=== PATIENT | male | born 1965 | race Caucasian/White ===

== ENCOUNTER 2021-10-04 12:37 | Emergency (ER) | payer BC, MEDICARE, SELFPAY ==
[2021-10-04] VITALS (10 sets, daily range): BP systolic 130–154; BP diastolic 69–90; PULSE 78–91; RESP 17–18; TEMP 36.8; O2SAT 96–100; BMI 26.8
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
--- NOTE | 2021-10-04 13:10 | PC.NURSE ---
pt going to CT via stretcher pain meds given prior to CT
[2021-10-04 13:31] LABS: Alanine Aminotransferase 38 U/L (12-78); Albumin Level 4.2 g/dl (3.5-5.0); Albumin/Globulin Ratio 1.6 (1.1-1.8); Alkaline Phosphatase 111 U/L (38-126); Anion Gap 10.9 mEq/L (5-15); Aspartate Amino Transferase 49 U/L (17-59); Bilirubin,Total 0.6 mg/dl (0.2-1.3); Blood Urea Nitrogen 14 mg/dl (9-20); Calcium 9.3 mg/dl (8.4-10.2); Carbon Dioxide 28 mmol/L (22.0-30.0); Chloride 105 mmol/L (98-107); Creatinine Clearance Estimated 106 mL/min (50-200); Estimated Glomerular Filt Rate 78 ml/min (>60); GFR (African American) 94 ML/MIN (>60); Globulin 2.7 g/dL (1.3-3.2); Glucose 198 mg/dl (74-100); Potassium 3.9 mmoL/L (3.5-5.1); Sodium 140 mmol/L (136-145); Total Protein,Serum 6.9 g/dl (6.3-8.2)
[2021-10-04 13:37] LABS: Basophils % 0.4 % (0.1-2.0); Eosinophils # 0.1 K/mm3 (0.0-0.4); Hematocrit 46.2 % (42.0-52.0); Hemoglobin 14.4 g/dL (14.1-18.0); Lymphocytes # 0.6 K/mm3 (0.7-4.5); Lymphocytes % 4.8 % (10-50); Mean Corpuscular HGB Conc 31.2 g/dL (31.8-35.4); Mean Corpuscular Hemoglobin 30.1 pg (27.0-31.2); Mean Corpuscular Volume 96.4 fl (80-94); Mean Platelet Volume 9.1 fl (7.4-10.4); Monocytes # 0.7 K/mm3 (0.1-1.0); Monocytes % 5.8 % (1.7-9.3); Neutrophils # 10.4 K/mm3 (1.8-7.8); Neutrophils % 87.9 % (37.0-80.0); Platelet Count 268 K/mm3 (142-424); Red Blood Count 4.79 M/mm3 (4.60-6.20); Red Cell Distribution Width 12.9 % (11.5-17.5); White Blood Count 11.8 K/mm3 (4.8-10.8)
[2021-10-04 13:40] LABS: MANUAL DIFFERENTIAL MANUAL DIFFERENTIAL (MANUAL DIFF)
[2021-10-04 13:55] LABS: Lymphocytes % 9 % (10-50); Monocytes % 5 % (2-9); Neutrophils % 85 % (42-76); RBC Morphology Normal; Total Cells Counted 100
[2021-10-04 13:56] LABS: Platelet Estimate Normal
--- NOTE | 2021-10-04 14:18 | PC.NURSE ---
pt remains in CT. rounded on waiting in the room. no needs at this time
--- NOTE | 2021-10-04 14:28 | PC.NURSE ---
pt back from CT. blanket provided to pt.
--- NOTE | 2021-10-04 17:00 | PC.NURSE ---
TULIO NÚÑEZ at for patient procedure.
--- NOTE | 2021-10-04 18:39 | PC.NURSE ---
PT UP AND HAS AMBULATED AROUND ROOM WITH AND STAFF
== END 2021-10-04 19:54 | disposition home or self-care (01) ==
PROVIDERS: Emergency Provider Emergency Medicine; PCP Internal Medicine
DX: S22.069A Unspecified fracture of T7-T8 vertebra, initial encounter for closed fracture (principal); S01.01XA Laceration without foreign body of scalp, initial encounter; W31.89XA Contact with other specified machinery, initial encounter
CPT/HCPCS: 12001; 70450; 70496; 70498; 71045; 71275; 72125; 72128; 72131; 72170; 73030; 73080; 73090; 73110; 73130; 73590; 74174; 80053; 85007; 85025; 86850; 96374; 96375; 99285; J2405; Q9967

== ENCOUNTER 2021-12-19 07:00 | Outpatient (RCR) | payer BC, MEDICARE, SELFPAY | END 2022-01-21 09:36 | disposition home or self-care (01) | LOC: PT.CARL 07:00 | PROVIDERS: PCP Internal Medicine; Visit Provider Neurological Surgery | DX: M54.2 Cervicalgia (principal) | CPT/HCPCS: 97012; 97110; 97140; 97163; 97164 ==

== ENCOUNTER 2024-07-03 23:53 | Emergency (ER) | payer MEDICARE, SELFPAY ==
[2024-07-04 00:02] VITALS: BP 172/81; PULSE 107; RESP 18; TEMP 39.2; O2SAT 96; BMI 27.9
--- NOTE | 2024-07-04 00:08 | HMH.EDGENADL ---
Discharge Plan Disposition Chief Complaint: Upper Respiratory Infection Prescriptions Prescriptions: No Action naproxen 500 mg tablet 500 mg PO Q12H PRN (Reason: pain) Qty: 20 0RF oxycodone 5 mg tablet 5 mg PO Q6H PRN (Reason: severe pain (scale score 7-10)) Qty: 12 0RF methocarbamol 500 mg tablet 500 mg PO Q8H PRN (Reason: pain) Qty: 20 0RF Referrals Follow up/Referrals: Andreas Parry [Primary Care Provider] - See instructions Activity Restrictions/Add. Instructions Additional Instructions/Restrictions: Please follow-up with your primary care provider. Please return to the emergency department if you develop any new or worsening symptoms or become concerned for your health. Clinical Impressions Clinical Impression: Fever, Rhinovirus Print Language Print Language: Fijian Discharge ED Provider: Rob Benson General Adult HPI General Chief complaint: Upper Respiratory Infection Stated complaint: shaking fever chills congestion Time Seen by Provider: 07/03/24 23:58 Mode of Arrival: Ambulatory Source of Information: Patient and Relative Description of Symptoms (Recalled from ER Triage Doc. by RN): pt presents with c/o fever, shakes, and body aches that began approx 1 week ago. Pt reports last dose of tylenol or mortin was ths AM. Pt reports HX of diabetes with dexcom in placed last BG check reading 156 approx 30 mins ago. History of Present Illness HPI narrative: 59-year-old male with history of insulin-dependent diabetes presents for fever chills. He had an episode of chills so bad tonight that he was having trouble walking. Denies any seizure-like activity. He reports that he has been having nasal congestion and bodyaches over the last several days. Others in his family are similarly ill. He was worried that his blood sugar was low but when he checked it it was 90 at home. His blood sugar normally runs between 100 and 200. Denies any chest pain or shortness of breath. Reports intermittent productive cough. No history of lung disease. Patient denies any urinary symptoms. Primary complaint is his upper respiratory symptoms. They also report that he had a couple of tick bites recently but they were not on very long, were not engorged and he did not develop a rash around them. Related Data Previous Rx's ?Medication ?Instructions ?Recorded methocarbamol 500 mg tablet 500 mg PO Q8H PRN pain #20 tabs 10/04/21 naproxen 500 mg tablet 500 mg PO Q12H PRN pain #20 tabs 10/04/21 oxycodone 5 mg tablet 5 mg PO Q6H PRN severe pain (scale 10/04/21 score 7-10) #12 tabs Allergies Allergy/AdvReac Type Severity Reaction Status Date / Time No Known Drug Allergies (NO Allergy Unknown Verified 10/04/21 17:35 KNOWN DRUG ALLERGIES) [facility] Disclaimer: The information contained in this section may have been updated after the patient was seen, as this information can be updated by other users. Social History (Updated 10/04/21 @ 21:00 by Aditi Gaytan DO) Smoking Status: Never smoker alcohol intake: never current occupational status: employed Travel in the last 8 weeks?: None Have you lived/traveled outside [place] in past 30 days?: No Contact w/someone who lives/traveled outside [place] past 30 days?: No Exposure to someone with infectious disease in past 14 days?: No Do you have a fever (greater than 100.4 F or 38 C)?: Yes Have you tested positive for COVID-19?: No Exposed to someone with COVID-19 in past 14 days?: No Do you have a sore throat?: No Do you have a cough?: No Do you have any weakness?: Yes Do you have any diarrhea?: No Are you experiencing any unusual bleeding?: No Do you have any muscle aches/pain?: No Do you have any abdominal pain?: No Are you experiencing loss of taste or smell?: No ROS Obtained: Yes All systems reviewed & no additional complaints except as documented Physical Exam General General appearance: alert and in no apparent distress Head Head exam: atraumatic and normocephalic Eye Eye exam: Present normal appearance, PERRL and EOMI ENT ENT exam: Present normal oropharynx and normal external ear exam Neck Neck exam: Present normal inspection and full ROM Chest Chest inspection: Present normal inspection and symmetric chest wall rise; Absent tenderness Respiratory Respiratory exam: Present normal lung sounds bilaterally; Absent respiratory distress Cardiovascular Cardiovascular exam: Present regular rate and normal rhythm Abdominal Exam Abdominal exam: Present soft; Absent distention, tenderness or guarding Extremities Exam Extremities exam: Present normal inspection; Absent edema or joint swelling Back Exam Back exam: Present normal inspection; Absent tenderness Neurological Exam Neurological exam: Present alert and oriented X3; Absent motor sensory deficit Psychiatric Psychiatric exam: Present normal affect and normal mood Skin Skin exam: Present warm, dry and normal color Lymphatic Lymphatic Findings: no adenopathy Medical Decision Making Medical Records Medical records reviewed: Yes I reviewed the patient's medical records. Screening: Per USPSTF and CDC recommendations, given the prevalence of disease in our region, it is our hospital?s policy to screen for HIV and viral Hepatitis for all patients aged 18 and over and those with ongoing risk factors. Saravanan Inquiry Pt receiving controlled substance: No Saravanan was queried for this patient: No Vital Signs: 07/04/24 00:02 07/04/24 01:00 07/04/24 01:31 Temperature 102.6 F H Temperature Source Oral Pulse Rate 103 H 102 H Pulse Rate [Radial] 107 H Respiratory Rate 18 Blood Pressure 158/84 H 129/68 Blood Pressure [Right Arm] 172/81 H Blood Pressure Mean [Right Arm] 111 Blood Pressure Position [Right Arm] Sitting 02 Sat by Pulse Oximetry 96 94 L 95 Oxygen Delivery Method Room Air 07/04/24 02:00 Temperature Temperature Source Pulse Rate 99 H Pulse Rate [Radial] Respiratory Rate Blood Pressure 123/69 Blood Pressure [Right Arm] Blood Pressure Mean [Right Arm] Blood Pressure Position [Right Arm] 02 Sat by Pulse Oximetry 96 Oxygen Delivery Method Lab Data Lab results reviewed: Yes I reviewed the patient's lab results. Lab Results 07/04/24 00:18: WBC 9.5, RBC 4.73, Hgb 14.2, Hct 41.9 L, MCV 88.6, MCH 30.0, MCHC 33.9, RDW 12.1, Plt Count 248, MPV 10.4, Neut % (Auto) 92.3 H, Lymph % (Auto) 3.8 L, [place] % (Auto) 2.2, Eos % (Auto) 1.3, Baso % (Auto) 0.2, Neut # (Auto) 8.8 H, Lymph # (Auto) 0.4 L, [place] # (Auto) 0.2, Eos # (Auto) 0.1, Baso # (Auto) 0.0, Sodium 136, Potassium 3.9, Chloride 106, Carbon Dioxide 25, Anion Gap 8.9, BUN 17, Creatinine 0.90, Estimated Creat Clear 118, Estimated GFR 87, Est GFR ( Amer) 105, Glucose 158 H, Lactate 1.0, Calcium 9.0, Magnesium 1.7, Total Bilirubin 0.6, AST 27, ALT 16, Alkaline Phosphatase 83, Total Protein 6.8, Albumin 4.2, Globulin 2.6, Albumin/Globulin Ratio 1.6, Chlamy pneumoniae PCR Not detected, Adenovirus (PCR) Not detected, B. pertussis DNA (PCR) Not detected, Coronavirus OC43 (PCR) Not detected, Coronavirus HKU1 (PCR) Not detected, Coronavirus 229E (PCR) Not detected, SARS-CoV-2 (PCR) Not detected, Coronavirus NL63 (PCR) Not detected, Human Metapneumovir PCR Not detected, Influenza A (H1) PCR Not detected, Influ A (H1N1/09) PCR Not detected, Influenza A (H3) PCR Not detected, Influenza Type A (PCR) Not detected, Influenza Type B (PCR) Not detected, M. pneumoniae (PCR) Not detected, Parainfluenza 1 (PCR) Not detected, Parainfluenza 2 (PCR) Not detected, Parainfluenza 3 (PCR) Not detected, Parainfluenza 4 (PCR) Not detected, RSV (PCR) Not detected, Entero/Rhino (PCR) Detected A 07/04/24 00:18 07/04/24 00:18 Orders (Tests/Meds): ED MEDICATIONS Discontinued Medications Generic Name Dose Route Start Last Admin Trade Name Freq PRN Reason Stop Dose Admin Acetaminophen 1,000 mg 07/04/24 00:56 07/04/24 00:59 Acetaminophen 500mg Tab PO 07/04/24 00:57 1,000 mg ONCE ONE Administration Ketorolac Tromethamine 15 mg 07/04/24 00:56 07/04/24 00:59 Ketorolac 30mg/Ml Vial IV 07/04/24 00:57 15 mg ONCE ONE Administration ORDERS Category Date Time Status CXR 2 view (NOT portable) [XR chest 2V] Stat Exams 07/04/24 00:18 Completed CBC w/Auto Diff [Complete Blood Count Auto Diff] Stat Lab 07/04/24 00:18 Results CMP [Comprehensive Metabolic Panel] Stat Lab 07/04/24 00:18 Completed Full Resp Panel w/COVID ([facility]) Routine Lab 07/04/24 00:18 Completed Lactic Acid Stat Lab 07/04/24 00:18 Completed Magnesium Stat Lab 07/04/24 00:18 Completed Blood Culture Stat Micro 07/04/24 00:48 Received Medical Decision Narrative: 59-year-old male with history of insulin-dependent diabetes presents for several days of upper respiratory symptoms, 1 day of severe chills and fever. History was obtained via interactive discussion with patient, family, chart. On arrival, patient is febrile to 102.6, mildly hypertensive, mildly tachycardic with heart rate of 107., moving all extremities spontaneously. Full physical exam performed and significant for clear lungs bilaterally, nasal congestion/rhinorrhea noted. Differential includes but is not limited to URI, pneumonia, UTI, bacteremia, there is also some concern for tickborne illness given he has had some ticks on him recently, but they were not on for very long nor engorged and so concern for tickborne illness is very low. I considered administering IV antibiotics and fluids for possible sepsis, but given patient's presentation is most consistent with upper respiratory illness I do not think that this is indicated at this time. Patient was given Tylenol and Toradol for symptomatic management and correction of underlying abnormalities. Workup initiated including CBC CMP full viral respiratory panel blood cultures lactate chest x-ray. On re-evaluation, patient remains hemodynamically stable. Laboratory workup independently interpreted by me and significant for no significant leukocytosis, normal renal function, normal lactate. Viral panel returns with rhinovirus. Imaging independently interpreted by me and significant for clear lungs bilaterally without focal opacity.. See radiology read for full review of final results. Given patient history, exam and workup, patient's presentation most likely represents viral upper respiratory infection with rhinovirus resulting in fever and chills. Interactive discussion was had with patient regarding presentation, workup, return precautions etc. Procedures Risk/Benefits of Procedure(s) Were Explained: Yes Critical Care Critical Care Time Critical Care Time: No
--- OUTSIDE RECORDS SUMMARY | 2024-07-04 00:12 | XMS_ITS | Data Portability ---
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 Refill sent to [facility] pharmacy. [email or web address] Not available 2018 21:22:36 04/08/2019 04/08/2019 He is comfortabl e with injections. Medication is working well. Annual follow-up. [email or web address] Not available 04/08/2019 13:03:03 04/13/2020 04/13/2020 PSA normal. Continue prostate cancer screening with annual ALLIE and PSA. Medication refill as requested. [email or web address] Not available 04/16/2020 15:58:13 06/13/2022 06/13/2022 Trimix refilled. Continue Trimix for medical management of erectile dysfunction. [email or web address] Not available 06/13/2022 19:06:18 07/24/2023 07/24/2023 Medical manageme nt of erectile dysfunction with intracavernosal injections. Monitor lower urinary symptoms. [email or web address] Not available 07/25/2023 07:55:11 Plan of Treatment Reminders Order Date Submit Date Provider Last Modified By Organization Details Last Modified Time Details Appointments RECHECK 2024 01:00P M OANH QUIROZ MD Not available Not available Not available Lab urinalysi s panel, auto 2023 024 [email or web address] 4 [facility] Extended Services With [facility], [address] [place] [address] Dr Araya, [place], [address], 07/25/2023 07:55:14 urinalysi s panel, auto 2020 021 [email or web address] 4 [facility] Extended Services With [facility], [address] [place] [address] Dr Araya, [place], [address], 04/16/2020 15:57:50 urinalysi s, dipstick, auto [address] [place] [address] Extended Services With [facility], [address] [place] [address] Dr Araya, [place], [address], 04/08/2019 13:02:48 urinalysi s, dipstick, auto 2018 [email or web address] [place] [address] Extended Services With [facility], [address] [place] [address] Dr Araya, [place], [address], 2018 21:21:23 Referral None recorded. Procedures None recorded. Surgeries None recorded. Imaging None recorded. Medication Orders Compound Tri-Mix SJM papaverin e-phental om-alpros t 30mg-1mg- 20mcg/ml intracave rnosal solution 2023 024 [facility], [address], [place], [place], [id number], 07/25/2023 09:11:57 Compound Tri-Mix SJM papaverin e-phental om-alpros t 30mg-1mg- 20mcg/ml intracave rnosal solution 2022 023 [facility], [address], [place], [id number], 06/13/2022 19:09:13 Compound Tri-Mix SJM papaverin e-phental om-alpros t 30mg-1mg- 20mcg/ml intracave rnosal solution 2020 021 INTERFACE [facility]ly [facility], [address], [place], [place], [id number], 04/16/2020 16:00:39 papaverin e-phentol am-alpros t 30 mg-1 mg-20 mcg/mL intracave rnosal soln 2019 020 INTERFACE [facility], [address], [place], [place], [id number], 04/08/2019 13:06:47 papaverin e-phentol am-alpros t 30 mg-1 mg-20 mcg/mL intracave rnosal soln 2018 019 INTERFACE [facility], [address], [place], [place], [id number], 2018 21:23:04 Patient TargetsNo targets recorded. Patient Instructions Encounter Date Encounter Id Patient Instructions Last Modified By Organization Details Last Modified Time 03/19/2018 [id number] healthy together [email or web address] Not availa ble 2018 21:21:23 07/24/2023 [id number] learning about healthy weight [email or web address] Not available 07/25/2023 07:55:13 Reason for Referral None Reported. Results Created Date Observation Date Name Description Value Unit Range Abnormal Flag Note LastModifiedBy Organization Detail LastModifiedTime 04/14/1904/13/2020 urina lysis panel , auto Unknown Analyte Clean Catch Not Available [facility] [place] [facility] With [address] Araya, [place], [address], 04/13/2020 14:04:07 04/14/1904/13/2020 urina lysis panel , auto Unknown Analyte Yellow Not Available [facility] [place] Extended Services With [address] Araya, [place], [address], 04/13/2020 14:04:07 04/14/19 21 04/13/2020 urina lysis panel , auto Unknown Analyte Clear Not Available [facility] Extended Services With [address] Araya, [place], [address], 04/13/2020 14:04:07 04/14/19 21 04/13/2020 urina lysis panel , auto Unknown Analyte 1.010 Not Available [facility] Extended Services With [address] Araya, [place], [address], 04/13/2020 14:04:07 04/14/19 21 04/13/2020 urina lysis panel , auto Unknown Analyte 1.003- 1.035 Not Available [facility] Extended Services With [address] [place], [address], 04/13/2020 14:04:07 04/14/19 21 04/13/2020 urina lysis panel , auto Unknown Analyte 5.0 Not Available [facility] Extended Services With [address] Araya, [place], [address], 04/13/2020 14:04:07 04/14/19 21 04/13/2020 urina lysis panel , auto Unknown Analyte 5.0-8. 0 Not Available [facility] Extended Services With [address] Araya, [place], [address], 04/13/2020 14:04:07 04/14/19 21 04/13/2020 urina lysis panel , auto Unknown Analyte Negati ve Not Available [facility] Extended Services With [address] Araya, [place], [address], 04/13/2020 14:04:07 04/14/19 21 04/13/2020 urina lysis panel , auto Unknown Analyte Negati ve Not Available [facility] Extended Services With [address] [place], [address], 04/13/2020 14:04:07 04/14/19 21 04/13/2020 urina lysis panel , auto Unknown Analyte Negati ve Not Available [facility] Extended Services With [address] [place], [address], 04/13/2020 14:04:07 04/14/19 21 04/13/2020 urina lysis panel , auto Unknown Analyte Negati ve Not Available [facility] Extended Services With [address] [place], [address], 04/13/2020 14:04:07 04/14/19 21 04/13/2020 urina lysis panel , auto Unknown Analyte 30 mg/dl (+) Not Available [facility] Extended Services With [address] [place], [address], 04/13/2020 14:04:07 04/14/1904/13/2020 urina lysis panel , auto Unknown Analyte Negati ve Not Available [facility] Extended Services With [address] [place], [address], 04/13/2020 14:04:07 04/14/19 21 04/13/2020 urina lysis panel , auto Unknown Analyte >1000 mg/dl Not Available [facility] Extended Services With [address] [place], [address], 04/13/2020 14:04:07 04/14/19 21 04/13/2020 urina lysis panel , auto Unknown Analyte Normal Not Available [facility] Extended Services With [address] [place], [address], 04/13/2020 14:04:07 04/14/19 21 04/13/2020 urina lysis panel , auto Unknown Analyte Negati ve Not Available [facility] Extended Services With [address] Araya, [place], [address], 04/13/2020 14:04:07 04/14/19 21 04/13/2020 urina lysis panel , auto Unknown Analyte Negati ve Not Available [facility] Extended Services With [address] [place], [address], 04/13/2020 14:04:07 04/14/19 21 04/13/2020 urina lysis panel , auto Unknown Analyte Normal Not Available [facility] Extended Services With [address] [place], [address], 04/13/2020 14:04:07 04/14/19 21 04/13/2020 urina lysis panel , auto Unknown Analyte Normal 1 mg/dl Not Available [facility] Extended Services With [address] Araya, [place], [address], 04/13/2020 14:04:07 04/14/19 21 04/13/2020 urina lysis panel , auto Unknown Analyte Negati ve Not Available [facility] Extended Services With [address] [place], [address], 04/13/2020 14:04:07 04/14/19 21 04/13/2020 urina lysis panel , auto Unknown Analyte Negati ve Not Available [facility] Extended Services With [address] [place], [address], 04/13/2020 14:04:07 04/14/19 21 04/13/2020 urina lysis panel , auto Unknown Analyte Negati ve Not Available [facility] With [address] Araya, [place], [address], 04/13/2020 14:04:07 04/14/19 21 04/13/2020 urina lysis panel , auto Unknown Analyte Negati ve Not Available [facility] Extended Services With [address] [place], [address], 04/13/2020 14:04:07 04/08/19 20 04/08/2019 urina lysis , dipst ick, auto Unknown Analyte Yellow Not Available [facility] Extended Services With [address] [place], [address], 04/08/2019 12:56:32 04/08/19 20 04/08/2019 urina lysis , dipst ick, auto Unknown Analyte Clear Not Available [facility] Extended Services With [address] [place], [address], 04/08/2019 12:56:32 04/08/19 20 04/08/2019 urina lysis , dipst ick, auto Unknown Analyte 1.010 Not Available [facility] Extended Services With [address] [place], [address], 04/08/2019 12:56:32 04/08/19 20 04/08/2019 urina lysis , dipst ick, auto Unknown Analyte 1.003 - 1.035 Not Available [facility] Extended Services With [address] [place], [address], 04/08/2019 12:56:32 04/08/19 20 04/08/2019 urina lysis , dipst ick, auto Unknown Analyte 5.0 Not Available [facility] Extended Services With [address] [place], [address], 04/08/2019 12:56:32 04/08/19 20 04/08/2019 urina lysis , dipst ick, auto Unknown Analyte 5.0 - 8.0 Not Available [facility] Extended Services With [address] Araya, [place], [address], 04/08/2019 12:56:32 04/08/19 20 04/08/2019 urina lysis , dipst ick, auto Unknown Analyte Negati ve Not Available [facility] Extended Services With [address] [place]raya, [place], [address], 04/08/2019 12:56:32 04/08/19 20 04/08/2019 urina lysis , dipst ick, auto Unknown Analyte Negati ve Not Available [facility] Extended Services With [address] [place], [address], 04/08/2019 12:56:32 04/08/19 20 04/08/2019 urina lysis , dipst ick, auto Unknown Analyte Negati ve Not Available [facility] Extended Services With [address] Araya, [place], [address], 04/08/2019 12:56:32 04/08/19 20 04/08/2019 urina lysis , dipst ick, auto Unknown Analyte Negati ve Not Available [facility] Extended Services With [address] [place], [address], 04/08/2019 12:56:32 04/08/19 20 04/08/2019 urina lysis , dipst ick, auto Unknown Analyte 100 mg/dl (++) Not Available [facility] Extended Services With [address] [place], [address], 04/08/2019 12:56:32 04/08/19 20 04/08/2019 urina lysis , dipst ick, auto Unknown Analyte Negati ve - Trace Not Available [facility] Extended Services With [address] Araya, [place], [address], 04/08/2019 12:56:32 04/08/19 20 04/08/2019 urina lysis , dipst ick, auto Unknown Analyte >1000 mg/dl Not Available [facility] Extended Services With [address] Araya, [place], [address], 04/08/2019 12:56:32 04/08/19 20 04/08/2019 urina lysis , dipst ick, auto Unknown Analyte Normal Not Available [facility] Extended Services With [address] [place], [address], 04/08/2019 12:56:32 04/08/19 20 04/08/2019 urina lysis , dipst ick, auto Unknown Analyte Negati ve Not Available [facility] Extended Services With [address] Araya, [place], [address], 04/08/2019 12:56:32 04/08/19 20 04/08/2019 urina lysis , dipst ick, auto Unknown Analyte Negati ve Not Available [facility] Extended Services With [address] [place], [address], 04/08/2019 12:56:32 04/08/19 20 04/08/2019 urina lysis , dipst ick, auto Unknown Analyte Normal Not Available [facility] Extended Services With [address] [place], [address], 04/08/2019 12:56:32 04/08/19 20 04/08/2019 urina lysis , dipst ick, auto Unknown Analyte Normal - 1mg/dl Not Available [facility] Extended Services With [address] Araya, [place], [address], 04/08/2019 12:56:32 04/08/19 20 04/08/2019 urina lysis , dipst ick, auto Unknown Analyte Negati ve Not Available [facility] Extended Services With [address] [place], [address], 04/08/2019 12:56:32 04/08/19 20 04/08/2019 urina lysis , dipst ick, auto Unknown Analyte Negati ve Not Available [facility] Extended Services With [address] Araya, [place], [address], 04/08/2019 12:56:32 04/08/19 20 04/08/2019 urina lysis , dipst ick, auto Unknown Analyte Negati ve Not Available [facility] Extended Services With [address] Araya, [place], [address], 04/08/2019 12:56:32 04/08/19 20 04/08/2019 urina lysis , dipst ick, auto Unknown Analyte Negati ve Not Available [facility] Extended Services With [address] [place], [address], 04/08/2019 12:56:32 04/08/19 20 04/08/2019 urina lysis , dipst ick, auto Unknown Analyte Clean Catch Not Available [facility] Extended Services With [address] [place], [address], 04/08/2019 12:56:32 04/08/19 20 04/08/2019 urina lysis , dipst ick, auto Unknown Analyte Automa dada Not Available [facility] Extended Services With [address] [place], [address], 04/08/2019 12:56:32 03/19/19 19 03/19/2018 urina lysis , dipst ick, auto Unknown Analyte Yellow Not Available [facility] Extended Services With [address] rAaya, [place], [address], 03/19/2018 14:49:03 03/19/19 19 03/19/2018 urina lysis , dipst ick, auto Unknown Analyte Clear Not Available [facility] Extended Services With [address] [place], [address], 03/19/2018 14:49:03 03/19/19 19 03/19/2018 urina lysis , dipst ick, auto Unknown Analyte 1.025 Not Available [facility] Extended Services With [address] [place], [address], 03/19/2018 14:49:03 03/19/19 19 03/19/2018 urina lysis , dipst ick, auto Unknown Analyte 1.003 - 1.035 Not Available [facility] Extended Services With [address] Araya, [place], [address], 03/19/2018 14:49:03 03/19/19 19 03/19/2018 urina lysis , dipst ick, auto Unknown Analyte 5.0 Not Available [facility] Extended Services With [address] Araya, [place], [address], 03/19/2018 14:49:03 03/19/1903/19/2018 urina lysis , dipst ick, auto Unknown Analyte 5.0 - 8.0 Not Available [facility] Extended Services With [address] [place], [address], 03/19/2018 14:49:03 03/19/19 19 03/19/2018 urina lysis , dipst ick, auto Unknown Analyte Negati ve Not Available [facility] Extended Services With [address] [place], [address], 03/19/2018 14:49:03 03/19/19 19 03/19/2018 urina lysis , dipst ick, auto Unknown Analyte Negati ve Not Available [facility] Extended Services With [address] [place], [address], 03/19/2018 14:49:03 03/19/19 19 03/19/2018 urina lysis , dipst ick, auto Unknown Analyte Negati ve Not Available [facility] Extended Services With [address] [place], [address], 03/19/2018 14:49:03 03/19/19 19 03/19/2018 urina lysis , dipst ick, auto Unknown Analyte Negati ve Not Available [facility] Extended Services With [address] [place], [address], 03/19/2018 14:49:03 03/19/19 19 03/19/2018 urina lysis , dipst ick, auto Unknown Analyte Negtiv e Not Available [facility] Extended Services With [address] [place], [address], 03/19/2018 14:49:03 03/19/19 19 03/19/2018 urina lysis , dipst ick, auto Unknown Analyte Negati ve - Trace Not Available [facility] Extended Services With [address] [place], [address], 03/19/2018 14:49:03 03/19/19 19 03/19/2018 urina lysis , dipst ick, auto Unknown Analyte >1000 mg/dl Not Available [facility] Extended Services With [address] [place], [address], 03/19/2018 14:49:03 03/19/19 19 03/19/2018 urina lysis , dipst ick, auto Unknown Analyte Normal Not Available [facility] Extended Services With [address] [place], [address], 03/19/2018 14:49:03 03/19/19 19 03/19/2018 urina lysis , dipst ick, auto Unknown Analyte Negati ve Not Available [facility] Extended Services With [address] [place], [address], 03/19/2018 14:49:03 03/19/19 19 03/19/2018 urina lysis , dipst ick, auto Unknown Analyte Negati ve Not Available [facility] Extended Services With [address] [place], [address], 03/19/2018 14:49:03 03/19/19 19 03/19/2018 urina lysis , dipst ick, auto Unknown Analyte Normal Not Available [facility] Extended Services With [address] [place], [address], 03/19/2018 14:49:03 03/19/19 19 03/19/2018 urina lysis , dipst ick, auto Unknown Analyte Normal - 1mg/dl Not Available [facility] Extended Services With [address] [place], [address], 03/19/2018 14:49:03 03/19/19 19 03/19/2018 urina lysis , dipst ick, auto Unknown Analyte Negati ve Not Available [facility] Extended Services With [address] [place], [address], 03/19/2018 14:49:03 03/19/19 19 03/19/2018 urina lysis , dipst ick, auto Unknown Analyte Negati ve Not Available [facility] Extended Services With [address] [place], [address], 03/19/2018 14:49:03 03/19/19 19 03/19/2018 urina lysis , dipst ick, auto Unknown Analyte Negati ve Not Available [facility] Extended Services With [address] [place], [address], 03/19/2018 14:49:03 03/19/19 19 03/19/2018 urina lysis , dipst ick, auto Unknown Analyte Negati ve Not Available [facility] Extended Services With [address] [place], [address], 03/19/2018 14:49:03 03/19/19 19 03/19/2018 urina lysis , dipst ick, auto Unknown Analyte Clean Catch Not Available [facility] Extended Services With [address] [place], [address], 03/19/2018 14:49:03 03/19/19 19 03/19/2018 urina lysis , dipst ick, auto Unknown Analyte Automa dada Not Available [facility] Extended Services With [address] [place], [address], 03/19/2018 14:49:03 07/24/19 24 07/24/2023 urina lysis panel , auto Unknown Analyte Clean Catch Not Available [facility] Extended Services With [address] [place], [address], 07/24/2023 13:43:44 07/24/19 24 07/24/2023 urina lysis panel , auto Unknown Analyte Yellow Not Available [facility] Extended Services With [address] Araya, [place], [address], 07/24/2023 13:43:44 07/24/19 24 07/24/2023 urina lysis panel , auto Unknown Analyte Clear Not Available [facility] Extended Services With [address] Araya, [place], [address], 07/24/2023 13:43:44 07/24/19 24 07/24/2023 urina lysis panel , auto Unknown Analyte 1.020 Not Available [facility] Extended Services With [address] Araya, [place], [address], 07/24/2023 13:43:44 07/24/19 24 07/24/2023 urina lysis panel , auto Unknown Analyte 1.003- 1.035 Not Available [facility] Extended Services With [address] Araya, [place], [address], 07/24/2023 13:43:44 07/24/19 24 07/24/2023 urina lysis panel , auto Unknown Analyte 5.0 Not Available [facility] Extended Services With [address] [place], [address], 07/24/2023 13:43:44 07/24/19 24 07/24/2023 urina lysis panel , auto Unknown Analyte 5.0-8. 0 Not Available [facility] Extended Services With [address] [place], [address], 07/24/2023 13:43:44 07/24/19 24 07/24/2023 urina lysis panel , auto Unknown Analyte Negati ve Not Available [facility] Extended Services With [address] [place], [address], 07/24/2023 13:43:44 07/24/19 24 07/24/2023 urina lysis panel , auto Unknown Analyte Negati ve Not Available [facility] Extended Services With [address] Araya, [place], [address], 07/24/2023 13:43:44 07/24/19 24 07/24/2023 urina lysis panel , auto Unknown Analyte Negati ve Not Available [facility] Extended Services With [address] [place]raya, [place], [address], 07/24/2023 13:43:44 07/24/19 24 07/24/2023 urina lysis panel , auto Unknown Analyte Negati ve Not Available [facility] Extended Services With [address] [place], [address], 07/24/2023 13:43:44 07/24/19 24 07/24/2023 urina lysis panel , auto Unknown Analyte 30 mg/dl (+) Not Available [facility] Extended Services With [address] Araya, [place], [address], 07/24/2023 13:43:44 07/24/19 24 07/24/2023 urina lysis panel , auto Unknown Analyte Negati ve Not Available [facility] Extended Services With [address] [place], [address], 07/24/2023 13:43:44 07/24/19 24 07/24/2023 urina lysis panel , auto Unknown Analyte >1000 mg/dl Not Available [facility] Extended Services With [address] [place], [address], 07/24/2023 13:43:44 07/24/19 24 07/24/2023 urina lysis panel , auto Unknown Analyte Normal Not Available [facility] Extended Services With [address] [place], [address], 07/24/2023 13:43:44 07/24/19 24 07/24/2023 urina lysis panel , auto Unknown Analyte Negati ve Not Available [facility] Extended Services With [address] [place], [address], 07/24/2023 13:43:44 07/24/19 24 07/24/2023 urina lysis panel , auto Unknown Analyte Negati ve Not Available [facility] Extended Services With [address] [place], [address], 07/24/2023 13:43:44 07/24/19 24 07/24/2023 urina lysis panel , auto Unknown Analyte Normal Not Available [facility] Extended Services With [address] [place], [address], 07/24/2023 13:43:44 07/24/19 24 07/24/2023 urina lysis panel , auto Unknown Analyte Normal 1 mg/dl Not Available [facility] Extended Services With [address] [place], [address], 07/24/2023 13:43:44 07/24/19 24 07/24/2023 urina lysis panel , auto Unknown Analyte Negati ve Not Available [facility] Extended Services With [address] [place], [address], 07/24/2023 13:43:44 07/24/19 24 07/24/2023 urina lysis panel , auto Unknown Analyte Negati ve Not Available [facility] Extended Services With [address] [place], [address], 07/24/2023 13:43:44 07/24/19 24 07/24/2023 urina lysis panel , auto Unknown Analyte Negati ve Not Available [facility] [place] Extended Services With [address] Araya, [place], [address], 07/24/2023 13:43:44 07/24/19 24 07/24/2023 urina lysis panel , auto Unknown Analyte Negati ve Not Available [facility] Extended Services With [address] Araya, [place], [address], 07/24/2023 13:43:44 Result Notes None recorded. Problems Name Problem SNOMED Code Status Onset Date Resolution Date Notes Provider Name and Address Organization Details Recorded Time Impotence Active 018 Murelene [facility] [facility] 15:06:45 Problem Notes None recorded. Procedures Surgical History Date Name Laterality Status Provider Name and Address Organization Details Recorded Time 4 [facility] 07/24/2023 13:43:17 0 [facility] 04/13/2020 14:03:47 8 Injection Corpora Cavernosa completed OANH QUIROZ MD [address] [place] [address], [phone], [facility] 03/19/2017 13:59:26 Imaging Results None recorded. Procedure Notes None recorded. Medical Equipment None Reported. Allergies No known drug allergies Medications Name Sig Start Date Stop Date Status Note LastModified by Organization Details LastModified Time Compound Tri-Mix SJM papaverine- phentalom-a lprost 30mg-1mg-20 mcg/ml intracavern osal solution 0.1-0.2 mL injection as directed 2023 active Not Available Not Available Not Avai lable compounded medication 0.1-0.2 ml injection as needed active Not Available Not Available No t Available compounded medication 0.1-0.2 ml injection as needed 2022 active Not Available Not Available Not Avai lable compounded medication 0.1-0.2 ml injection as needed active Not Available Not Available No t Available Compound Tri-Mix SJM papaverine- phentalom-a lprost 30mg-1mg-20 mcg/ml intracavern osal solution 0.1-0.2 mL injection as directed 2022 active Not Available Not Available Not Avai lable Compound Tri-Mix SJM papaverine- phentalom-a lprost 30mg-1mg-20 mcg/ml intracavern osal solution 0.1-0.2 mL injection as directed 2023 active Not Available Not Available Not Avai lable Compound Tri-Mix SJM papaverine- phentalom-a lprost 30mg-1mg-20 mcg/ml intracavern osal solution 0.1-0.2 mL injection as directed 2022 active Not Available Not Available Not Avai lable compounded medication 0.1-0.2 ml injection as needed 2022 active Not Available Not Available Not Avai lable Compound Tri-Mix SJM papaverine- phentalom-a lprost 30mg-1mg-20 mcg/ml intracavern osal solution 0.1-0.2 mL injection as directed 2022 active Not Available Not Available Not Avai lable Compound Tri-Mix SJM papaverine- phentalom-a lprost 30mg-1mg-20 mcg/ml intracavern osal solution 0.1-0.2 mL injection as directed 2022 active Not Available Not Available Not Avai lable Compound Tri-Mix SJM papaverine- phentalom-a lprost 30mg-1mg-20 mcg/ml intracavern osal solution 0.1-0.2 mL injection as directed 2020 active Not Available Not Available Not Avai lable Compound Tri-Mix SJM papaverine- phentalom-a lprost 30mg-1mg-20 mcg/ml intracavern osal solution 0.1-0.2 mL injection as directed active Not Available Not Available No t Available compounded medication 0.1-0.2 ml injection as needed active Not Available Not Available No t Available Compound Tri-Mix SJM papaverine- phentalom-a lprost 30mg-1mg-20 mcg/ml intracavern osal solution 0.1-0.2 mL injection as directed active Not Available Not Available No t Available Compound Tri-Mix SJM papaverine- phentalom-a lprost 30mg-1mg-20 mcg/ml intracavern osal solution 0.1-0.2 mL injection as directed 2022 active Not Available Not Available Not Avai lable compounded medication 0.1-0.2 ml injection as needed active Not Available Not Available No t Available Compound Tri-Mix SJM papaverine- phentalom-a lprost 30mg-1mg-20 mcg/ml intracavern osal solution 0.1-0.2 mL injection as directed active Not Available Not Available No t Available Compound Tri-Mix SJM papaverine- phentalom-a lprost 30mg-1mg-20 mcg/ml intracavern osal solution 0.1-0.2 mL injection as directed active Not Available Not Available No t Available compounded medication 0.1-0.2 ml injection as needed 2022 active Not Available Not Available Not Avai lable compounded medication 0.1-0.2 ml injection as needed active Not Available Not Available No t Available Sure Comfort Ins Syr 1cc/29G misc active Not Available Not Available Not Available alprostadil 20 mcg intracavern osal solution active Not Available Not Available Not Available carvedilol active Not Available Not Av ailable Not Available amlodipine 03/19 completed Not Available Not Available Not Available lisinopril active Not Available Not Av ailable Not Available Lantus U-100 Insulin 04/08 completed Not Available Not Available Not Available Zetia active Not Available Not Availa ble Not Available Farxiga active Not Available Not Avail able Not Available papaverine- phentolam-a lprost 30 mg-1 mg-20 mcg/mL intracavern osal soln 0.1-0.2 ml injection as needed 2021 active Not Available Not Available Not Avai lable Vitals Date Recorded Body height Body mass index (BMI) Body weight Systolic blood pressure Diastolic blood pressure Provider Name and Address Organization Details Last Updated DateTime 03/19/2018 182.88 cm 48.4 kg/m2 796435.4 8 g 160 mm[Hg] 90 mm[Hg] Morales Borrero [facility] 14:47:03 Date Recorded Body height Body mass index (BMI) Body weight Provider Name and Address Organization Details Last Updated DateTime 04/13/2020 182.88 cm 34.9 kg/m2 238939.24 g Morales Borrero [facility] 04/13/2020 14:02:48 Date Recorded Body height Body mass index (BMI) Body weight Provider Name and Address Organization Details Last Updated DateTime 06/13/2022 182.88 cm 34.9 kg/m2 415067.24 g Amita Bennettherford [facility] 06/13/2022 14:11:14 Date Recorded Body height Body mass index (BMI) Body weight Provider Name and Address Organization Details Last Updated DateTime 07/24/2023 182.88 cm 28.2 kg/m2 41309.21 [facility] 07/24/2023 13:42:34 Social History Question Answer Notes LastModified by Organizat ion Details LastModified Time Tobacco Smoking Status Former Smoker Morales Borrero [facility] 03/06/2017 15:07:02 How Much Tobacco Do You Chew? None Information not available 03/19/2018 Marital Status Informatio n not available 03/06/2017 What Was The Date Of Your Most Recent Tobacco Screening? 07/24/2023 Information not available 07/24/2023 Sex: Unknown Functional Status None recorded. Mental Status None recorded. Family History Relationship Description Onset Age of this Age Resolved Age Notes LastModified by Organization Details LastModified Time Father No current problems or disability Not available 03/06 15:06:53 Mother No current problems or disability Not available 03/06 15:06:53 Medical History Condition Response Arthritis Y Allergies/Hayfever Y Diabetes Y Sleep Apnea Y Past Encounters Encounter ID Performer Location Encounter Start Date Encounter Closed Date Diagnosis/Indication Diagnosis SNOMED-CT Code Diagnosis ICD10 Code Diagnosis Note [id number] OANH QUIROZ MD [facility] [address] [facility],[place] [address] 03/06/2017 14:13:58 03/07/2017 16:09:28 Impotence of organic origin 911356213 N52.9 [id number] OANH QUIROZ MD [facility] [address],[place] [address] 8 03/13/2017 13:03:03 03/19/2017 15:42:57 Impotence of organic origin 914289623 N52.9 [id number] OANH QUIROZ MD [facility] [address],[place] [address] 8 06/19/2017 13:03:17 06/30/2017 10:40:27 Impotence of organic origin 128954472 N52.9 [id number] OANH QUIROZ MD [facility] [address],[place] [address] 8 03/19/2018 13:24:08 03/30/2018 10:25:23 Impotence of organic origin 059570514 N52.9 [id number] OANH QUIROZ MD [facility] [address],[place] [address] 8 04/08/2019 12:48:45 04/08/2019 13:02:17 Impotence of organic origin [id number] N52.9 [id number] OANH QUIROZ MD [facility] [address],[place] [address] 8 04/13/2020 13:23:02 04/18/2020 11:15:13 Benign prostatic hyperplasia with outflow obstruction 690199725 N40.1 Primary er ectile dysfunction 241611621 N52.9 [id number] OANH QUIROZ MD [facility] [address],[place] [address] 8 06/13/2022 14:03:34 06/14/2022 09:58:51 Primary erectile dysfunction 662002018 N52.9 Benign pro static hyperplasia with outflow obstruction 524378674 N40.1 [id number] OANH QUIROZ MD [facility] [address],[place] [address] 8 07/24/2023 13:23:11 07/24/2023 17:47:49 Benign prostatic hyperplasia with outflow obstruction 417835655 N40.1 Primary er ectile dysfunction 921595767 N52.9 Health Concerns Section Related Observation LastModified by Organization Detai ls LastModified Time None Recorded Concern Status LastModified by Organization Details LastModified Time None Recorded Advance Directives Directive None Recorded Payers Insurance Date Sequence Insurance Name Policy Number Policy Mims Covered Member ID Mims Member ID Guarantor Name 07/25/2023 1 [place] [id number] 1 Lianne Saavedra [id number] Juan Saavedra 07/25/2023 1 [place] Juan Saavedra [id number] Juan Saavedra 03/12/2017 1 *SELF PAY* St iliana Saavedra 07/25/2023 1 [place]MEDICARE REPLACEMENT HMO) [id number] Juan Saavedra [id number] Juan Saavedra Notes Date Note Type Note Provider Name and Address Organization Details Recorded Time 03/19/2018 text/html 53-year-old male in the office for follow-up evaluation of erectile dysfunction. He is using Trimix with good response. He denies troubles with urination. No hematuria, dysuria, frequency, urgency. He voids every 3 hours and nocturia. He reports recent ALLIE and PSA with Dr. Julio. OANH QUIROZ MD [address] [place] [address], [phone], [facility] 2018 21:22:44 04/08/2019 text/html 54-year-old male in the office for follow-up evaluation of erectile dysfunction. He uses Trimix with good response. He states he had recent ALLIE and PSA with Dr. Julio. He denies troubles with urination. He denies hematuria, dysuria, frequency, urgency. He voids 4 times daily without nocturia. OANH QUIROZ MD [address] [place] [address], [phone], [facility] 04/08/2019 13:03:26 04/13/2020 text/html 55-year-old male in the office for follow-up evaluation of erectile dysfunction and benign prostatic hyperplasia with lower urinary symptoms. He uses Trimix intracavernosal injections for erectile dysfunction with good response. PSA from November 2019 was 1.9. He reports ALLIE with Dr. Julio at that time. He denies bothersome lower urinary symptoms. No hematuria, dysuria, frequency, urgency. OANH QUIROZ MD [address] [place] [address], [phone], [facility] 04/16/2020 15:58:56 06/13/2022 text/html 57-year-old male in the office for follow-up evaluation of erectile dysfunction and benign prostatic hyperplasia with lower urinary symptoms. He uses Trimix intracavernosal injections for erectile dysfunction with good response.He reports ALLIE with Dr. Julio. Daytime frequency every 3 hours. No gross hematuria. No dysuria. OANH QUIROZ MD [address] [place] [address], [phone], [facility] 06/13/2022 19:06:41 07/24/2023 text/html 58-year-old male in the office for follow-up evaluation of erectile dysfunction and benign prostatic hyperplasia with lower urinary symptoms.Patient states he is doing well, he recently had ortho surgery on his shoulder. He denies urinary frequency, no nocturia, no straining, no hematuria, no dysuria, no hesitancy. He uses Trimix intracavernosal injections for erectile dysfunction with good response. He reports ALLIE and PSA with Dr. Julio. OANH QUIROZ MD [address] [place] [address], [phone], [facility] 07/25/2023 07:55:28
--- OUTSIDE RECORDS SUMMARY | 2024-07-04 00:12 | XMS_ITS ---
Author Organization Unknown Medications Medication Instructions Effective Dates (start - stop) Status - 9632-70-98Y50:00 :00.000+00 :00 - Completed - 0976-59-45D53:00 :00.000+00 :00 - Completed - 8259-26-89U18:00 :00.000+00 :00 - Completed - 8460-58-59T49:00 :00.000+00 :00 - Completed - 4273-78-42V99:00 :00.000+00 :00 - Completed - 7963-17-85C77:00 :00.000+00 :00 - Completed - 1175-92-02L46:00 :00.000+00 :00 - Completed - 9649-13-72M66:00 :00.000+00 :00 - Completed - 9944-76-86U06:00 :00.000+00 :00 - Completed oxycodone hydrochloride 5 MG Oral Tablet 6756-29-03Q60:00:00.000+00 :00 - Completed - 8897-59-14H49:00 :00.000+00 :00 - Completed - 0927-66-86H48:00 :00.000+00 :00 - Completed 3 ML insulin degludec 100 UN T/ML Pen Injector [Tresiba] 0957-11-94L96:00:00.000+00 :00 - Completed 3 ML insulin degludec 100 UN T/ML Pen Injector [Tresiba] 4519-77-89G38:00:00.000+00 :00 - Completed 3 ML liraglutide 6 MG/ML Pen Injector [Victoza] 7380-76-68B10:00:00.000+00 :00 - Completed 3 ML insulin degludec 100 UN T/ML Pen Injector [Tresiba] 5019-01-07L85:00:00.000+00 :00 - Completed methocarbamol 500 MG Oral Tablet 7272-76-87G99:00:00.000+00 :00 - Completed 3 ML liraglutide 6 MG/ML Pen Injector [Victoza] 1235-04-42H84:00:00.000+00 :00 - Completed carvedilol 12.5 MG Oral Tablet 2 926-11-84K77:00:00.000+00 :00 - Completed 3 ML liraglutide 6 MG/ML Pen Injector [Victoza] 1595-37-66T63:00:00.000+00 :00 - Completed carvedilol 12.5 MG Oral Tablet 2 468-12-20K41:00:00.000+00 :00 - Completed carvedilol 12.5 MG Oral Tablet 2 141-06-40J53:00:00.000+00 :00 - Completed meloxicam 15 MG Oral Tablet 2021:00:00.000+00 :00 - Completed ezetimibe 10 MG Oral Tablet 2022:00:00.000+00 :00 - Completed meloxicam 15 MG Oral Tablet 2022:00:00.000+00 :00 - Completed meloxicam 15 MG Oral Tablet 2022:00:00.000+00 :00 - Completed meloxicam 15 MG Oral Tablet 2021:00:00.000+00 :00 - Completed ezetimibe 10 MG Oral Tablet 2021:00:00.000+00 :00 - Completed gabapentin 600 MG Oral Tablet 01-10-20:00:00.000+00 :00 - Completed atorvastatin 80 MG Oral Tablet 2 691-17-78Y63:00:00.000+00 :00 - Completed gabapentin 600 MG Oral Tablet 31-08-24:00:00.000+00 :00 - Completed meloxicam 15 MG Oral Tablet 2021:00:00.000+00 :00 - Completed meloxicam 15 MG Oral Tablet 2022:00:00.000+00 :00 - Completed ezetimibe 10 MG Oral Tablet 2022:00:00.000+00 :00 - Completed carvedilol 12.5 MG Oral Tablet 753-96-95C19:00:00.000+00 :00 - Completed atorvastatin 80 MG Oral Tablet 2 193-02-09M84:00:00.000+00 :00 - Completed atorvastatin 80 MG Oral Tablet 155-32-67Q85:00:00.000+00 :00 - Completed meloxicam 15 MG Oral Tablet 2022:00:00.000+00 :00 - Completed meloxicam 15 MG Oral Tablet 2022:00:00.000+00 :00 - Completed atorvastatin 80 MG Oral Tablet 367-15-90T94:00:00.000+00 :00 - Completed meloxicam 15 MG Oral Tablet 2021:00:00.000+00 :00 - Completed meloxicam 15 MG Oral Tablet 2022:00:00.000+00 :00 - Completed gabapentin 600 MG Oral Tablet 01-11-20:00:00.000+00 :00 - Completed ezetimibe 10 MG Oral Tablet 2021:00:00.000+00 :00 - Completed naproxen 500 MG Oral Tablet 2021:00:00.000+00 :00 - Completed acetaminophen 325 MG / hydro codone bitartrate 10 MG Oral Tablet 3239-98-12U84:00:00.000+0 0 :00 - Completed acetaminophen 325 MG / hydro codone bitartrate 10 MG Oral Tablet 4790-87-09N24:00:00.000+0 0 :00 - Completed acetaminophen 325 MG / hydro codone bitartrate 10 MG Oral Tablet 8347-48-02D43:00:00.000+0 0 :00 - Completed acetaminophen 325 MG / hydro codone bitartrate 10 MG Oral Tablet 1705-52-15U88:00:00.000+0 0 :00 - Completed hydrochlorothiazide 12.5 MG / lisinopril 20 MG Oral Tablet 7920-76-02N56:00:00.000+0 0 :00 - Completed acetaminophen 325 MG / hydro codone bitartrate 10 MG Oral Tablet 6534-98-27B20:00:00.000+0 0 :00 - Completed amoxicillin 500 MG / clavula edis 125 MG Oral Tablet 2970-72-98L86:00:00.000+00 :00 - Completed 24 HR dapagliflozin 5 MG / m etformin hydrochloride 1000 MG Extended Release Oral Tablet [Xigduo] 6948-72-14Y80:00:00.000+0 0 :00 - Completed hydrochlorothiazide 12.5 MG / lisinopril 20 MG Oral Tablet 5373-63-26D45:00:00.000+0 0 :00 - Completed acetaminophen 325 MG / hydro codone bitartrate 10 MG Oral Tablet 1570-77-03H94:00:00.000+0 0 :00 - Completed acetaminophen 325 MG / hydro codone bitartrate 10 MG Oral Tablet 6104-15-19P44:00:00.000+0 0 :00 - Completed acetaminophen 325 MG / hydro codone bitartrate 10 MG Oral Tablet 4606-86-97H66:00:00.000+0 0 :00 - Completed acetaminophen 325 MG / hydro codone bitartrate 10 MG Oral Tablet 2287-03-34A06:00:00.000+0 0 :00 - Completed 24 HR dapagliflozin 5 MG / m etformin hydrochloride 1000 MG Extended Release Oral Tablet [Xigduo] 3554-54-25E75:00:00.000+0 0 :00 - Completed acetaminophen 325 MG / hydro codone bitartrate 10 MG Oral Tablet 0325-94-52Q64:00:00.000+0 0 :00 - Completed 24 HR dapagliflozin 5 MG / m etformin hydrochloride 1000 MG Extended Release Oral Tablet [Xigduo] 0603-10-74D86:00:00.000+0 0 :00 - Completed acetaminophen 325 MG / hydro codone bitartrate 10 MG Oral Tablet 0686-79-12S19:00:00.000+0 0 :00 - Completed acetaminophen 325 MG / hydro codone bitartrate 10 MG Oral Tablet 7702-93-47Z98:00:00.000+0 0 :00 - Completed 24 HR dapagliflozin 5 MG / m etformin hydrochloride 1000 MG Extended Release Oral Tablet [Xigduo] 2615-59-89T05:00:00.000+0 0 :00 - Completed Patient Care team information Name Category Status Period Participants - - Proposed period not known -
--- NOTE | 2024-07-04 00:18 | XR_ITS ---
PROCEDURE INFORMATION: Exam: XR Chest Exam date and time: 07/04/2024 12:22 AM Age: 59 years old Clinical indication: Dyspnea; Additional info: Fever, cough TECHNIQUE: Imaging protocol: Radiologic exam of the chest. Views: 2 views. COMPARISON: CR XR CHEST PORTABLE 10/04/2021 1:51 PM FINDINGS: Lungs: Unremarkable. No consolidation. Pleural spaces: Unremarkable. No pleural effusion. No pneumothorax. Heart/Mediastinum: Unremarkable. No cardiomegaly. Bones/joints: Unremarkable. IMPRESSION: No acute findings. No infiltration identified.
[2024-07-04 00:47] LABS: Adenovirus,PCR Not Detected (NotDetected); Bordetella Pertussis Not Detected (NotDetected); Chlamydophila Pneumoniae, PCR Not Detected (NotDetected); Coronavirus 19, PCR Not Detected (NotDetected); Coronavirus 229E Not Detected (NotDetected); Coronavirus NL63 Not Detected (NotDetected); Coronavirus OC43 Not Detected (NotDetected); Coronovirus HKU1,PCR Not Detected (NotDetected); Human Metapneumovirus Not Detected (NotDetected); Influenza A, PCR Not Detected (NotDetected); Influenza AH1, 2009 Not Detected (NotDetected); Influenza AH1, PCR Not Detected (NotDetected); Influenza AH3,PCR Not Detected (NotDetected); Influenza B, PCR Not Detected (NotDetected); Mycoplasma Pneumoniae, PCR Not Detected (NotDetected); Parainfluenza 1, PCR Not Detected (NotDetected); Parainfluenza 2, PCR Not Detected (NotDetected); Parainfluenza 3, PCR Not Detected (NotDetected); Parainfluenza 4, PCR Not Detected (NotDetected); Respiratory Syncytial Virus Not Detected (NotDetected)
[2024-07-04 00:50] LABS: Basophils % 0.2 % (0.1-2.0); Eosinophils # 0.1 Kmm3 (0.0-0.4); Eosinophils % 1.3 % (0.1-12.0); Hematocrit 41.9 % (42.0-52.0); Hemoglobin 14.2 g/dL (14.1-18.0); Immature Granulocytes # 0.02 10^3uL; Immature Granulocytes % 0.2 %; Lymphocytes # 0.4 K/mm3 (0.7-4.5); Lymphocytes % 3.8 % (10-50); Mean Corpuscular HGB Conc 33.9 g/dL (31.8-35.4); Mean Corpuscular Volume 88.6 fl (80-94); Mean Platelet Volume 10.4 fl (7.4-10.4); Monocytes # 0.2 K/mm3 (0.1-1.0); Monocytes % 2.2 % (1.7-9.3); Neutrophils # 8.8 K/mm3 (1.8-7.8); Neutrophils % 92.3 % (37.0-80.0); Nucleated Red Blood Cells # 0 10^3/uL; Nucleated Red Blood Cells % 0 %; Platelet Count 248 K/mm3 (142-424); Red Blood Count 4.73 M/mm3 (4.60-6.20); Red Cell Distribution Width 12.1 % (11.5-17.5); Red Cell Distribution Width-SD 39.5 fL; White Blood Count 9.5 K/mm3 (4.8-10.8)
[2024-07-04 00:55] LABS: Albumin Level 4.2 g/dl (3.5-5.0); Chloride 106 mmol/L (98-107); MANUAL DIFFERENTIAL MANUAL DIFFERENTIAL (MANUAL DIFF); Potassium 3.9 mmoL/L (3.5-5.1); Sodium 136 mmol/L (136-145)
[2024-07-04 00:57] LABS: Blood Urea Nitrogen 17 mg/dl (9-20)
[2024-07-04 00:58] LABS: Alanine Aminotransferase 16 U/L (12-78); Albumin/Globulin Ratio 1.6 (1.1-1.8); Alkaline Phosphatase 83 U/L (38-126); Anion Gap 8.9 mEq/L (5-15); Aspartate Amino Transferase 27 U/L (17-59); Bilirubin,Total 0.6 mg/dl (0.2-1.3); Carbon Dioxide 25 mmol/L (22.0-30.0); Creatinine Clearance Estimated 118 mL/min (50-200); Estimated Glomerular Filt Rate 87 ml/min (>60); GFR (African American) 105 ML/MIN (>60); Globulin 2.6 g/dL (1.3-3.2); Glucose 158 mg/dl (74-100); Total Protein,Serum 6.8 g/dl (6.3-8.2)
[2024-07-04 00:59] LABS: Magnesium 1.7 mg/dl (1.6-2.3)
[2024-07-04] MEDS: KETOROLAC 30MG/ML VIAL 15 MG IV (00:59)
[2024-07-04] MEDS: ACETAMINOPHEN 500MG TAB 1000 MG PO (00:59)
[2024-07-04 01:00] VITALS: BP 158/84; PULSE 103; O2SAT 94
[2024-07-04 01:31] VITALS: BP 129/68; PULSE 102; O2SAT 95
[2024-07-04 02:00] VITALS: BP 123/69; PULSE 99; O2SAT 96
[2024-07-04 02:19] LABS: Rhinovirus/Enterovirus Detected (NotDetected)
[2024-07-04 02:44] LABS: Lymphocytes % 4 % (10-50); Monocytes % 1 % (2-9); Neutrophils % 94 % (42-76); Total Cells Counted 100
[2024-07-04 02:45] LABS: Platelet Estimate Normal; RBC Morphology Normal
[2024-07-04 02:47] VITALS: BP 126/71; PULSE 91; RESP 18; TEMP 37.7; O2SAT 96
--- NOTE | 2024-07-11 08:56 | PC.NURSE ---
Blood cultures completed, no growth. ntd.
== END 2024-07-04 02:48 | disposition home or self-care (01) ==
PROVIDERS: Emergency Provider Emergency Medicine; PCP Internal Medicine
DX: J06.9 Acute upper respiratory infection, unspecified (principal)
CPT/HCPCS: 0223U; 71046; 80053; 83605; 83735; 85007; 85025; 85027; 87040; 87633; 96374; 99284; J1885